=== PATIENT | male | born 1980 | race American Indian/Alaskan Native ===

== ENCOUNTER 2024-04-16 02:54 | Observation (INO) | payer BC ==
[2024-04-16] MEDS: HYDROmorphone 1 MG/ML Syringe IVPUSH ONE (03:31)
[2024-04-16] MEDS: Alum Hydro/Mag Hydro/Simeth XS 15 ML, Lidocaine 2% 5 ML PO ONE (03:31)
[2024-04-16] MEDS: Sodium Chloride 0.9% 10 ML Syringe FLUSH PRN (03:32)
[2024-04-16] MEDS: Sodium Chloride 0.9% 2.5 ML Syringe FLUSH PRN (03:32)
[2024-04-16 03:34] LABS: BASOPHILS ABSOLUTE AUTO 0.08 K/uL (0.00-0.20); BASOPHILS PERCENT AUTO 0.4 % (0.0-1.0); EOSINOPHILS ABSOLUTE AUTO 0.07 K/uL (0.00-0.45); EOSINOPHILS PERCENT AUTO 0.3 % (0.0-6.0); HEMATOCRIT 46.9 % (42.0-52.0); HEMOGLOBIN 16.3 g/dL (14.0-18.0); IMMATURE GRAN ABSOLUTE AUTO 0.07 K/uL (0.00-0.05); IMMATURE GRAN PERCENT AUTO 0.3 % (0.0-0.4); LYMPHOCYTES ABSOLUTE AUTO 3.25 K/uL (1.00-4.80); LYMPHOCYTES PERCENT AUTO 15.9 % (24.0-44.0); MEAN CORPUSCULAR HEMOGLOBIN 30.9 pg (28.0-32.0); MEAN CORPUSCULAR HGB CONC 34.8 g/dL (32.0-36.0); MEAN CORPUSCULAR VOLUME 88.8 fL (83.0-99.0); MONOCYTES ABSOLUTE AUTO 0.88 K/uL (0.00-0.80); MONOCYTES PERCENT AUTO 4.3 % (0.0-8.0); NEUTROPHILS ABSOLUTE AUTO 16.04 K/uL (1.80-7.70); NEUTROPHILS PERCENT AUTO 78.8 % (41.0-71.0); PLATELET COUNT,PLT 314 K/uL (150-400); RED BLOOD CELL COUNT 5.28 M/uL (4.52-5.90); WHITE BLOOD CELL COUNT,WBC 20.39 K/uL (3.9-11.3)
[2024-04-16 03:35] LABS: APPEARANCE,URINE CLEAR; BILIRUBIN,URINE NEGATIVE (NEGATIVE); COLOR,URINE YELLOW; GLUCOSE,URINE NEGATIVE (NEGATIVE); KETONES,URINE 15 mg/dL (NEGATIVE); LEUKOCYTE ESTERASE,URINE NEGATIVE (NEGATIVE); NITRITE,URINE NEGATIVE (NEGATIVE); OCCULT BLOOD,URINE NEGATIVE (NEGATIVE); PROTEIN,URINE NEGATIVE (NEGATIVE); UROBILINOGEN,URINE 0.2 EU/dL (<2.0)
[2024-04-16] MEDS: Sodium Chloride 0.9% 1,000 ML IV ONE (03:36)
[2024-04-16] MEDS: Sodium Chloride 0.9% 1,000 ML IV STA (03:41)
[2024-04-16] MEDS: Ondansetron 4 MG/2 ML SDV IVPUSH ONE (03:42)
[2024-04-16 03:46] LABS: INR 1.04 (0.86-1.11)
[2024-04-16 03:58] LABS: A/G RATIO 1.3 (0.9-1.6); ALBUMIN 4.6 g/dL (3.4-5.0); BILIRUBIN TOTAL 0.3 mg/dL (0.2-1.0); CALCIUM 9.5 mg/dL (8.5-10.1); CARBON DIOXIDE,CO2 20.9 mmol/L (21.0-32.0); CREATININE 1.1 mg/dL (0.8-1.3); EST CRCL DRUG DOSING (CG) 95.04 mL/min; POTASSIUM,K 3.7 mmol/L (3.5-5.1); PROTEIN TOTAL,TP 8.2 g/dL (6.4-8.2)
[2024-04-16 04:14] LABS: LACTIC ACID 2.2 mmol/L (0.4-2.0)
[2024-04-16] MEDS: Iopamidol 755 MG/ML 500 ML Multipack Bottle IVPUSH ONE (04:39)
[2024-04-16] MEDS: metroNIDAZOLE/Normal Saline 500 MG in Premix Bag 1 BAG IV ONE (05:45)
[2024-04-16] MEDS: Levofloxacin/Dextrose 5%-Water 750 MG in Premix Bag 1 BAG IV ONE (05:45)
[2024-04-16] MEDS ORDERED: Polyethylene Glycol 3350 Powder 17 GM Packet PO PRN (09:00)
[2024-04-16] MEDS ORDERED: Ondansetron 4 MG/2 ML SDV IVPUSH PRN (09:15)
[2024-04-16 09:37] LABS: HEMOGLOBIN A1C 5.4 %
[2024-04-16] MEDS: Pantoprazole 40 MG in Sodium Chloride 0.9% 10 ML IVPUSH SCH (09:46)
[2024-04-16] MEDS: Sodium Chloride 0.9% 1,000 ML IV SCH (09:46)
[2024-04-16] MEDS: metroNIDAZOLE/Normal Saline 500 MG in Premix Bag 1 BAG IV SCH (13:39)
[2024-04-16] MEDS: Acetaminophen 325 MG Tab PO PRN (20:47)
[2024-04-16] MEDS ORDERED: Melatonin 3 MG Tab PO PRN (21:00)
[2024-04-17 06:01] LABS: HEMATOCRIT 43.8 % (42.0-52.0); HEMOGLOBIN 15.1 g/dL (14.0-18.0); MEAN CORPUSCULAR HEMOGLOBIN 30.9 pg (28.0-32.0); MEAN CORPUSCULAR HGB CONC 34.5 g/dL (32.0-36.0); MEAN CORPUSCULAR VOLUME 89.8 fL (83.0-99.0); MEAN PLATELET VOLUME 10.5 fL (9.4-12.4); PLATELET COUNT,PLT 296 K/uL (150-400); RED BLOOD CELL COUNT 4.88 M/uL (4.52-5.90); WHITE BLOOD CELL COUNT,WBC 18.72 K/uL (3.9-11.3)
[2024-04-17] MEDS: Levofloxacin/Dextrose 5%-Water 750 MG in Premix Bag 1 BAG IV SCH (06:15)
[2024-04-17 06:23] LABS: A/G RATIO 0.9 (0.9-1.6); ALBUMIN 3.4 g/dL (3.4-5.0); BILIRUBIN TOTAL 0.7 mg/dL (0.2-1.0); CALCIUM 8.4 mg/dL (8.5-10.1); CARBON DIOXIDE,CO2 25.9 mmol/L (21.0-32.0); CREATININE 0.9 mg/dL (0.8-1.3); EST CRCL DRUG DOSING (CG) 133.38 mL/min; MAGNESIUM 1.7 mg/dL (1.8-2.4); POTASSIUM,K 3.8 mmol/L (3.5-5.1)
[2024-04-17] MEDS: Magnesium Oxide 400 MG Tab PO ONE (18:18)
[2024-04-18 05:24] LABS: BASOPHILS ABSOLUTE AUTO 0.08 K/uL (0.00-0.20); BASOPHILS PERCENT AUTO 0.5 % (0.0-1.0); EOSINOPHILS ABSOLUTE AUTO 0.32 K/uL (0.00-0.45); HEMATOCRIT 44.8 % (42.0-52.0); HEMOGLOBIN 15.4 g/dL (14.0-18.0); IMMATURE GRAN ABSOLUTE AUTO 0.04 K/uL (0.00-0.05); IMMATURE GRAN PERCENT AUTO 0.2 % (0.0-0.4); LYMPHOCYTES PERCENT AUTO 25.1 % (24.0-44.0); MEAN CORPUSCULAR HEMOGLOBIN 30.7 pg (28.0-32.0); MEAN CORPUSCULAR HGB CONC 34.4 g/dL (32.0-36.0); MEAN CORPUSCULAR VOLUME 89.2 fL (83.0-99.0); MEAN PLATELET VOLUME 10.1 fL (9.4-12.4); MONOCYTES ABSOLUTE AUTO 1.38 K/uL (0.00-0.80); MONOCYTES PERCENT AUTO 8.5 % (0.0-8.0); NEUTROPHILS PERCENT AUTO 63.7 % (41.0-71.0); PLATELET COUNT,PLT 281 K/uL (150-400); RED BLOOD CELL COUNT 5.02 M/uL (4.52-5.90); WHITE BLOOD CELL COUNT,WBC 16.32 K/uL (3.9-11.3)
[2024-04-18 05:55] LABS: ALBUMIN 3.5 g/dL (3.4-5.0); BILIRUBIN TOTAL 0.4 mg/dL (0.2-1.0); CALCIUM 8.6 mg/dL (8.5-10.1); CARBON DIOXIDE,CO2 24.8 mmol/L (21.0-32.0); EST CRCL DRUG DOSING (CG) 120.04 mL/min; POTASSIUM,K 4.1 mmol/L (3.5-5.1); PROTEIN TOTAL,TP 7.1 g/dL (6.4-8.2)
[2024-04-21 12:07] LABS: HAV AB IGM Negative (Negative); HBC IGM Negative (Negative); HEP B SURG AG Negative (Negative); HEP C AB BY CIA High Pos (Negative); HEP C AB BY CIA INDEX >11.00 IV
[2024-04-22 09:31] LABS: HEP C QNT BY NAAT (log IU/mL) 4.35 log IU/mL; HEP C QNT BY NAAT INTERP Detected (Not Detected)
== END 2024-04-18 11:50 | disposition home or self-care (01) ==
LOC: MW.ED 02:54 → MW.MS 05:47
PROVIDERS: ADMIT Family Medicine; ATTEND Family Medicine
DX: K52.9 Noninfective gastroenteritis and colitis, unspecified (principal); D72.829 Elevated white blood cell count, unspecified; R82.4 Acetonuria; F17.210 Nicotine dependence, cigarettes, uncomplicated
CPT/HCPCS: 36415; 71045; 71275; 74174; 80053; 80074; 80307; 81003; 83036; 83605; 83690; 83735; 83880; 84484; 85025; 85027; 85610; 87040; 87338; 87505; 87522; 93005; A9270; J1170; J1836; J1956; J2405; J2470; J3490; J7030; Q9967; 99222; 99232; 99239

== ENCOUNTER 2024-06-03 07:18 | Day surgery (SDC) | payer BC ==
[2024-06-03] MEDS: Lactated Ringers 1,000 ML IV SCH (07:40)
[2024-06-03] MEDS ORDERED: Lidocaine 2% 5 ML SDV ONE (08:44)
[2024-06-03] MEDS ORDERED: Propofol 200 MG/20 ML SDV ONE ×3 (08:44→09:21)
== END 2024-06-03 10:29 | disposition home or self-care (01) ==
LOC: MW.SDS 07:18
PROVIDERS: ATTEND Surgery
DX: D12.6 Benign neoplasm of colon, unspecified (principal); K52.9 Noninfective gastroenteritis and colitis, unspecified; F17.210 Nicotine dependence, cigarettes, uncomplicated; Z79.899 Other long term (current) drug therapy
CPT/HCPCS: 45380; 45385; J2704; J7120; 00811; J3490

== ENCOUNTER 2024-12-19 05:37 | Emergency (ER) | payer BC ==
[2024-12-19 06:02] LABS: BASOPHILS ABSOLUTE AUTO 0.09 K/uL (0.00-0.20); BASOPHILS PERCENT AUTO 0.6 % (0.0-1.0); EOSINOPHILS ABSOLUTE AUTO 0.15 K/uL (0.00-0.45); EOSINOPHILS PERCENT AUTO 0.9 % (0.0-6.0); HEMATOCRIT 49.3 % (42.0-52.0); HEMOGLOBIN 16.8 g/dL (14.0-18.0); IMMATURE GRAN ABSOLUTE AUTO 0.06 K/uL (0.00-0.05); IMMATURE GRAN PERCENT AUTO 0.4 % (0.0-0.4); LYMPHOCYTES ABSOLUTE AUTO 3.16 K/uL (1.00-4.80); LYMPHOCYTES PERCENT AUTO 19.6 % (24.0-44.0); MEAN CORPUSCULAR HEMOGLOBIN 30.8 pg (28.0-32.0); MEAN CORPUSCULAR HGB CONC 34.1 g/dL (32.0-36.0); MEAN CORPUSCULAR VOLUME 90.5 fL (83.0-99.0); MEAN PLATELET VOLUME 10.1 fL (9.4-12.4); MONOCYTES PERCENT AUTO 5.6 % (0.0-8.0); NEUTROPHILS ABSOLUTE AUTO 11.76 K/uL (1.80-7.70); NEUTROPHILS PERCENT AUTO 72.9 % (41.0-71.0); PLATELET COUNT,PLT 270 K/uL (150-400); RED BLOOD CELL COUNT 5.45 M/uL (4.52-5.90); WHITE BLOOD CELL COUNT,WBC 16.12 K/uL (3.9-11.3)
[2024-12-19] MEDS: Sodium Chloride 0.9% 1,000 ML IV ONE (06:04)
[2024-12-19] MEDS: Ondansetron 4 MG/2 ML SDV IVPUSH ONE (06:04)
[2024-12-19] MEDS: Ketorolac 30 MG/ML SDV IVPUSH ONE (06:05)
[2024-12-19] MEDS: Orphenadrine 60 MG/2 ML Inj IM ONE (06:06)
[2024-12-19] MEDS: Iopamidol 755 MG/ML 500 ML Multipack Bottle IVPUSH ONE (06:19)
[2024-12-19 06:33] LABS: A/G RATIO 1.1 (0.9-1.6); ALBUMIN 4.2 g/dL (3.4-5.0); BILIRUBIN TOTAL 0.3 mg/dL (0.2-1.0); CALCIUM 9.3 mg/dL (8.5-10.1); CARBON DIOXIDE,CO2 24.3 mmol/L (21.0-32.0); CREATININE 1.2 mg/dL (0.8-1.3); EST CRCL DRUG DOSING (CG) 86.22 mL/min; PROTEIN TOTAL,TP 7.9 g/dL (6.4-8.2)
== END 2024-12-19 07:03 | disposition home or self-care (01) ==
LOC: MW.ED 05:37
DX: K80.50 Calculus of bile duct without cholangitis or cholecystitis without obstruction (principal); M54.6 Pain in thoracic spine; Z79.899 Other long term (current) drug therapy
CPT/HCPCS: 36415; 74177; 80053; 83690; 84484; 85025; 93005; 96361; 96372; 96374; 96375; 99284; J1885; J2360; J2405; J7030; Q9967; 93010

== ENCOUNTER 2025-03-01 05:24 | Emergency (ER) | payer BC ==
[2025-03-01] MEDS: Ondansetron 4 MG/2 ML SDV IVPUSH ONE (05:45)
[2025-03-01] MEDS: Morphine 4 MG/ML Syringe IVPUSH ONE (05:45)
[2025-03-01 05:46] LABS: BASOPHILS ABSOLUTE AUTO 0.07 K/uL (0.00-0.20); BASOPHILS PERCENT AUTO 0.4 % (0.0-1.0); EOSINOPHILS ABSOLUTE AUTO 0.02 K/uL (0.00-0.45); EOSINOPHILS PERCENT AUTO 0.1 % (0.0-6.0); HEMATOCRIT 49.6 % (42.0-52.0); HEMOGLOBIN 16.9 g/dL (14.0-18.0); IMMATURE GRAN ABSOLUTE AUTO 0.05 K/uL (0.00-0.05); IMMATURE GRAN PERCENT AUTO 0.3 % (0.0-0.4); LYMPHOCYTES ABSOLUTE AUTO 2.72 K/uL (1.00-4.80); LYMPHOCYTES PERCENT AUTO 15.2 % (24.0-44.0); MEAN CORPUSCULAR HEMOGLOBIN 30.6 pg (28.0-32.0); MEAN CORPUSCULAR HGB CONC 34.1 g/dL (32.0-36.0); MEAN CORPUSCULAR VOLUME 89.9 fL (83.0-99.0); MEAN PLATELET VOLUME 11.1 fL (9.4-12.4); MONOCYTES PERCENT AUTO 3.4 % (0.0-8.0); NEUTROPHILS ABSOLUTE AUTO 14.44 K/uL (1.80-7.70); NEUTROPHILS PERCENT AUTO 80.6 % (41.0-71.0); PLATELET COUNT,PLT 253 K/uL (150-400); RED BLOOD CELL COUNT 5.52 M/uL (4.52-5.90)
[2025-03-01] MEDS: Ketorolac 30 MG/ML SDV IVPUSH ONE (05:56)
[2025-03-01 06:29] LABS: A/G RATIO 1.3 (0.9-1.6); ALANINE AMINOTRANSFERASE,ALT 103 IU/L (14-63); ALBUMIN 4.7 g/dL (3.4-5.0); ALKALINE PHOSPHATASE 103 U/L (46-116); ASPARTATE AMNIOTRANSFERASE,AST 48 IU/L (15-37); BILIRUBIN TOTAL 0.5 mg/dL (0.2-1.0); BLOOD UREA NITROGEN,BUN 12 mg/dL (7.0-18.0); CALCIUM 9.2 mg/dL (8.5-10.1); CARBON DIOXIDE,CO2 24.6 mmol/L (21.0-32.0); CHLORIDE,CL 103 mmol/L (98-107); GLUCOSE RANDOM 125 mg/dL (74-106); LIPASE 41 U/L (16-77); POTASSIUM,K 4.1 mmol/L (3.5-5.1); PROTEIN TOTAL,TP 8.4 g/dL (6.4-8.2); SODIUM,NA 141 mmol/L (136-148)
[2025-03-01 06:39] LABS: ESTIMATED GFR 95 mL/min (>60)
[2025-03-01] MEDS: Sodium Chloride 0.9% 1,000 ML IV ONE (07:16)
[2025-03-01] MEDS: Ciprofloxacin 500 MG Tab PO ONE (11:42)
== END 2025-03-01 11:47 | disposition home or self-care (01) ==
LOC: MW.ED 05:24
DX: K80.50 Calculus of bile duct without cholangitis or cholecystitis without obstruction (principal); D72.829 Elevated white blood cell count, unspecified
CPT/HCPCS: 36415; 74181; 76705; 80053; 83605; 83690; 84484; 85025; 93005; 96361; 96374; 96375; 99284; A9270; J1885; J2270; J2405; J7030

== ENCOUNTER 2025-03-04 09:14 | Inpatient (IN) | payer BC ==
[2025-03-04] MEDS ORDERED: Sodium Chloride 0.9% 10 ML Syringe FLUSH PRN (09:29)
[2025-03-04] MEDS ORDERED: Sodium Chloride 0.9% 2.5 ML Syringe FLUSH PRN (09:29)
[2025-03-04] MEDS ORDERED: Sodium Chloride 0.9% 20 ML SDV IV PRN (09:29)
[2025-03-04] MEDS: Metoclopramide 10 MG/2 ML SDV IM ONE (09:36)
[2025-03-04] MEDS: HYDROmorphone 0.5 MG/0.5 ML Syringe IVPUSH ONE ×2 (09:38→10:46)
[2025-03-04] MEDS: Sodium Chloride 0.9% 1,000 ML IV ONE ×2 (09:38→14:02)
[2025-03-04 09:49] LABS: BASOPHILS ABSOLUTE AUTO 0.09 K/uL (0.00-0.20); BASOPHILS PERCENT AUTO 0.7 % (0.0-1.0); EOSINOPHILS ABSOLUTE AUTO 0.12 K/uL (0.00-0.45); EOSINOPHILS PERCENT AUTO 0.9 % (0.0-6.0); HEMATOCRIT 48.5 % (42.0-52.0); HEMOGLOBIN 16.6 g/dL (14.0-18.0); IMMATURE GRAN ABSOLUTE AUTO 0.03 K/uL (0.00-0.05); IMMATURE GRAN PERCENT AUTO 0.2 % (0.0-0.4); LYMPHOCYTES ABSOLUTE AUTO 2.71 K/uL (1.00-4.80); LYMPHOCYTES PERCENT AUTO 21.3 % (24.0-44.0); MEAN CORPUSCULAR HEMOGLOBIN 30.6 pg (28.0-32.0); MEAN CORPUSCULAR HGB CONC 34.2 g/dL (32.0-36.0); MEAN CORPUSCULAR VOLUME 89.5 fL (83.0-99.0); MEAN PLATELET VOLUME 10.3 fL (9.4-12.4); MONOCYTES PERCENT AUTO 6.3 % (0.0-8.0); NEUTROPHILS PERCENT AUTO 70.6 % (41.0-71.0); PLATELET COUNT,PLT 290 K/uL (150-400); RED BLOOD CELL COUNT 5.42 M/uL (4.52-5.90); WHITE BLOOD CELL COUNT,WBC 12.75 K/uL (3.9-11.3)
[2025-03-04 10:05] LABS: INR 0.97 (0.86-1.11); PTT,PARTIAL THROMBOPLSTIN TIME 28.1 SEC (23.9-30.7)
[2025-03-04 10:17] LABS: LACTIC ACID 2.1 mmol/L (0.4-2.0)
[2025-03-04 10:24] LABS: A/G RATIO 1.2 (0.9-1.6); ALANINE AMINOTRANSFERASE,ALT 93 IU/L (14-63); ALBUMIN 4.4 g/dL (3.4-5.0); ALKALINE PHOSPHATASE 100 U/L (46-116); ASPARTATE AMNIOTRANSFERASE,AST 42 IU/L (15-37); BILIRUBIN TOTAL 0.4 mg/dL (0.2-1.0); BLOOD UREA NITROGEN,BUN 14 mg/dL (7.0-18.0); CALCIUM 9.2 mg/dL (8.5-10.1); CARBON DIOXIDE,CO2 25.5 mmol/L (21.0-32.0); CHLORIDE,CL 104 mmol/L (98-107); CREATININE 1.2 mg/dL (0.8-1.3); GLUCOSE RANDOM 119 mg/dL (74-106); POTASSIUM,K 4.4 mmol/L (3.5-5.1); SODIUM,NA 142 mmol/L (136-148)
[2025-03-04 10:27] LABS: ESTIMATED GFR 76 mL/min (>60)
[2025-03-04] MEDS ORDERED: Naloxone 0.4 MG/ML SDV IVPUSH PRN (13:00)
[2025-03-04] MEDS: fentaNYL 50 MCG/ML SDV IVPUSH ONE (13:09)
[2025-03-04] MEDS ORDERED: Ondansetron 4 MG/2 ML SDV IVPUSH PRN (13:21)
[2025-03-04] MEDS ORDERED: HYDROmorphone 1 MG/ML Syringe IVPUSH PRN (13:24)
[2025-03-04] MEDS: Acetaminophen/HYDROcodone 325-5 MG Tab PO PRN (14:12)
[2025-03-04] MEDS: cefOXitin 1 GM in Water For Injection, Sterile 10 ML IVPUSH SCH (14:25)
[2025-03-05] MEDS: Acetaminophen/HYDROcodone 325-5 MG Tab PO PRN (13:13)
[2025-03-06] MEDS ORDERED: Albuterol 0.083% 2.5 MG/3 ML Neb Soln NEB PRN (07:28)
[2025-03-06] MEDS ORDERED: Metoclopramide 10 MG/2 ML SDV IVPUSH PRN (07:31)
[2025-03-06] MEDS ORDERED: Ondansetron 4 MG/2 ML SDV IVPUSH PRN (07:31)
[2025-03-06] MEDS ORDERED: HYDROmorphone 1 MG/ML Syringe IVPUSH PRN (07:32)
[2025-03-06] MEDS ORDERED: Naloxone 0.4 MG/ML SDV IVPUSH PRN (07:32)
[2025-03-06] MEDS ORDERED: fentaNYL 50 MCG/ML SDV IVPUSH PRN (07:32)
[2025-03-06] MEDS ORDERED: Morphine 2 MG/ML SYRINGE IVPUSH PRN (07:33)
[2025-03-06] MEDS ORDERED: Phenylephrine HCl In 0.9% NaCl 1 MG/10 ML Syringe IVPUSH PRN (07:33)
[2025-03-06] MEDS: Lactated Ringers 1,000 ML IV SCH (08:48)
[2025-03-06] MEDS ORDERED: Ropivacaine 0.5% 5 MG/ML 30 ML SDV ONE (09:59)
[2025-03-06] MEDS ORDERED: Propofol 200 MG/20 ML SDV ONE (10:03)
[2025-03-06] MEDS ORDERED: Midazolam 1 MG/ML 2 ML SDV ONE (10:03)
[2025-03-06] MEDS ORDERED: fentaNYL 100 MCG/2 ML SDV ONE ×2 (10:03→13:02)
[2025-03-06] MEDS ORDERED: dexmedeTOMIDine HCl 200 MCG/2 ML SDV ONE (10:04)
[2025-03-06] MEDS ORDERED: Rocuronium Bromide 50 MG/5 ML Syringe ONE ×2 (10:04→13:25)
[2025-03-06] MEDS ORDERED: Lidocaine 2% 5 ML SDV ONE (10:04)
[2025-03-06] MEDS ORDERED: Sodium Chloride 0.9% 20 ML ONE (10:04)
[2025-03-06] MEDS ORDERED: Ondansetron 4 MG/2 ML SDV ONE (12:53)
[2025-03-06] MEDS ORDERED: Dexamethasone 4 MG/ML 5 ML MDV ONE (12:53)
[2025-03-06] MEDS: ceFAZolin 2 GM in Water For Injection, Sterile 20 ML IV ONE (13:25)
[2025-03-06] MEDS ORDERED: HYDROmorphone 1 MG/ML Syringe ONE (14:07)
[2025-03-06] MEDS ORDERED: Sugammadex Sodium 200 MG/2 ML VIAL IV ONE (14:42)
[2025-03-06] MEDS ORDERED: Morphine 4 MG/ML Syringe IVPUSH PRN (15:31)
[2025-03-06] MEDS ORDERED: Acetaminophen/HYDROcodone 325-5 MG Tab PO PRN (15:31)
[2025-03-06] MEDS ORDERED: Lactated Ringers 1,000 ML IV SCH (15:45)
== END 2025-03-07 09:40 | disposition home or self-care (01) | DRG 263 ==
LOC: MW.ED 09:14 → MW.MS 13:17 → UNDOADMOB 13:17 → MW.MS 13:37
PROVIDERS: ADMIT Surgery; ATTEND Surgery
PROC: 0FT44ZZ Resection of Gallbladder, Percutaneous Endoscopic Approach (ICD-10-PCS; principal; 2025-03-06)
DX: K80.62 Calculus of gallbladder and bile duct with acute cholecystitis without obstruction (principal); H54.7 Unspecified visual loss
CPT/HCPCS: 36415; 76705; 76705-26; 80053; 83605; 83735; 85025; 85610; 85730; 96361; 96372; 96374; 96375; 96376; 99284; 99285-25; A9270-GY; J0694; J1100; J1171; J2003; J2250; J2405; J2704; J2765; J2795; J3010; J3490; J7030; J7120